=== PATIENT | female | born 1990 | race Caucasian/White ===

== ENCOUNTER → 2017-12-20 | Outpatient (CLI) | payer OTHER ==
[~2017-12-20] MED LIST: KETO10TA2 PO; ORPH100T PO
== END | disposition home or self-care (01) ==
LOC: PPHC LAB 09:36
DX: Z02.0 Encounter for examination for admission to educational institution (principal)

== ENCOUNTER 2019-11-26 13:17 | Emergency (ER) | payer OTHER ==
[~2019-11-26] VITALS: Ht 167.6 cm; Wt 72.6 kg
== END 2019-11-26 18:08 | disposition home or self-care (01) ==
LOC: ER 13:17
DX: J06.9 Acute upper respiratory infection, unspecified (principal); B34.9 Viral infection, unspecified

== ENCOUNTER 2020-06-06 07:14 | Emergency (ER) | payer OTHER ==
[~2020-06-06] VITALS: Ht 167.6 cm; Wt 70.8 kg
== END 2020-06-06 10:44 | disposition home or self-care (01) ==
LOC: ER 07:14
DX: S93.492A Sprain of other ligament of left ankle, initial encounter (principal); W18.39XA Other fall on same level, initial encounter; Y93.89 Activity, other specified; Y92.018 Other place in single-family (private) house as the place of occurrence of the external cause; Y99.8 Other external cause status

== ENCOUNTER 2021-05-05 16:07 | Emergency (ER) | payer OTHER ==
[~2021-05-05] VITALS: Ht 167.6 cm; Wt 65.8 kg
[2021-05-05] MEDS ORDERED: BUTALB-ACETAMI1 EACH PO (21:29)
[2021-05-05] MEDS ORDERED: ZOFRAN8 MG PO (21:29)
== END 2021-05-05 22:34 | disposition home or self-care (01) ==
LOC: ER 16:07
DX: G43.909 Migraine, unspecified, not intractable, without status migrainosus (principal)